=== PATIENT | female | born 1950 | race American Indian/Alaskan Native ===

== ENCOUNTER 2019-06-10 10:17 | Emergency (ER) | payer MEDICARE ==
[2019-06-10] MEDS ORDERED: MORPHINE 4 MG/1 ML INJ IV ONE (11:05)
[2019-06-10] MEDS ORDERED: ONDANSETRON 4 MG/2 ML INJ IV ONE (11:05)
--- NOTE | 2019-06-10 11:48 | XRay Report ---
HISTORY:pubic symp pain COMPARISON: None. TECHNIQUE: AP views were obtained FINDINGS: Bones: No fracture or dislocation. Joint spaces: Maintained. Soft tissues: No significant abnormality. Additional findings: None. IMPRESSION: 1. No significant abnormality. Signer Name: Jet Zaidi MD Signed: 06/10/2019 11:43 AM Workstation Name: [id number]
[2019-06-10] MEDS ORDERED: HYDROmorphone 1 MG/1 ML INJ IV ONE (12:22)
--- NOTE | 2019-06-10 14:12 | Emergency Department Report ---
ED General Adult HPI - General Chief complaint: Fall Stated complaint: FALL INJURY/PELVIC PAIN Time Seen by Provider: 06/10/19 10:54 Source: patient Mode of arrival: Wheelchair Limitations: No Limitations - History of Present Illness Initial comments: Presents to the emergency department with a chief complaint of pelvic pain. Patient states that she was getting out of the shower and slipped on a book and did a complete splint. Patient denies any hip pain but complains of pelvis pain. Patient denies hitting her head or loss of consciousness. -: Sudden Location: pelvis Severity scale (0 -10): 6 Quality: stabbing Consistency: constant Improves with: rest Worsens with: movement Associated Symptoms: denies other symptoms Treatments Prior to Arrival: none - Related Data Previous Rx's Medication Instructions Recorded Last Taken Type HYDROcodone/APAP 5-325 [[place] 1 each PO Q6HR PRN #20 tablet 11/29/15 Unknown Rx 5/325] Ibuprofen [Motrin] 600 mg PO Q8H PRN #30 tablet 11/29/15 Unknown Rx Oxycodone HCl/Acetaminophen 1 each PO Q6HR PRN #20 tablet 06/10/19 Unknown Rx [Percocet 7.5/325 mg] Allergies Allergy/AdvReac Type Severity Reaction Status Date / Time beeswax Allergy Unknown Verified 11/29/15 11:38 iodine Allergy Rash Verified 11/29/15 11:37 bees Allergy Unknown Uncoded 11/29/15 11:38 ED Review of Systems ROS: Stated complaint: FALL INJURY/PELVIC PAIN Other details as noted in HPI Constitutional: denies: chills, fever Eyes: denies: eye pain, eye discharge, vision change ENT: denies: ear pain, throat pain Respiratory: denies: cough, shortness of breath, wheezing Cardiovascular: denies: chest pain, palpitations Endocrine: no symptoms reported Gastrointestinal: denies: abdominal pain, nausea, diarrhea Genitourinary: denies: urgency, dysuria, discharge Musculoskeletal: other (pelvis pain). denies: back pain, joint swelling, arthralgia Skin: denies: rash, lesions Neurological: denies: headache, weakness, paresthesias Psychiatric: denies: anxiety, depression Hematological/Lymphatic: denies: easy bleeding, easy bruising ED Past Medical Hx - Past Medical History Previous Medical History?: Yes Hx Hypertension: Yes Hx Arthritis: Yes Hx Psychiatric Treatment: Yes (Depression) Additional medical history: sinus - Surgical History Hx Appendectomy: Yes Hx Breast Surgery: Yes (left breast cyst removal) Additional Surgical History: Hysterectomy , Left rotator cuff repair, Constantino catar act - Social History Smoking Status: Never Smoker Substance Use Type: None - Medications Home Medications: Home Medications Medication Instructions Recorded Confirmed Last Taken Type HYDROcodone/APAP 5-325 [[place] 1 each PO Q6HR PRN #20 tablet 11/29/15 Unknown Rx 5/325] Ibuprofen [Motrin] 600 mg PO Q8H PRN #30 tablet 11/29/15 Unknown Rx Oxycodone HCl/Acetaminophen 1 each PO Q6HR PRN #20 tablet 06/10/19 Unknown Rx [Percocet 7.5/325 mg] ED Physical Exam - General Limitations: No Limitations General appearance: alert, in no apparent distress - Head Head exam: Present: atraumatic, normocephalic - Eye Eye exam: Present: normal appearance, PERRL, EOMI - ENT ENT exam: Present: mucous membranes moist - Neck Neck exam: Present: normal inspection - Respiratory Respiratory exam: Present: normal lung sounds bilaterally. Absent: respiratory distress - Cardiovascular Cardiovascular Exam: Present: regular rate, normal rhythm. Absent: systolic murmur, diastolic murmur, rubs, gallop - GI/Abdominal GI/Abdominal exam: Present: soft, tenderness (suprapubic ttp), normal bowel sounds. Absent: distended - Extremities Exam Extremities exam: Present: normal inspection - Back Exam Back exam: Present: normal inspection - Neurological Exam Neurological exam: Present: alert, oriented X3, CN II-XII intact. Absent: motor sensory deficit - Psychiatric Psychiatric exam: Present: normal affect, normal mood - Skin Skin exam: Present: warm, dry, intact, normal color. Absent: rash ED Course Vital Signs 06/10/19 06/10/19 06/10/19 10:24 11:27 12:36 Temperature 97.8 F Pulse Rate 69 62 Respiratory 20 12 12 Rate Blood Pressure 164/71 Blood Pressure 165/81 [Left] O2 Sat by Pulse 100 99 Oximetry ED Medical Decision Making - Radiology Data Radiology results: report reviewed - Medical Decision Making Patient not able to ambulate after reviewing negative xray thus CT ab/pelvis ordered Discussed the results of CT and xray with pt and her family Critical care attestation.: If time is entered above; I have spent that time in minutes in the direct care of this critically ill patient, excluding procedure time. ED Disposition Clinical Impression: Pelvic pain, Fall Disposition: - TO HOME OR SELFCARE Is pt being admited?: No Does the pt Need Aspirin: No Condition: Stable Instructions: Fall Prevention (ED) Additional Instructions: return if worse Prescriptions: Oxycodone HCl/Acetaminophen [Percocet 7.5/325 mg] 1 each PO Q6HR PRN #20 tablet PRN Reason: Pain Referrals: PRIMARY CARE,MD [Primary Care Provider] - 3-5 Days [facility] [Provider Group] - 3-5 Days [facility] [Provider Group] - 3-5 Days Forms: Work/School Release Form(ED) Time of Disposition: 14:52
--- NOTE | 2019-06-10 14:27 | Cat Scan Report ---
CT abdomen pelvis wo con INDICATION: suprapubic pain s/p fall. TECHNIQUE: All CT scans at this location are performed using the following dose modulation technique: Automated exposure control. Helical slices were obtained through the abdomen and pelvis. No contrast is adminis tered. COMPARISON: None available. FINDINGS: Abdomen: No acute abnormality is seen in the lung bases. The liver, spleen, pancreas, adrenal glands, and kidneys show no acute abnormality. There is no intra-abdominal organ injury. There is no free ai r or fluid. There are no abnormal fluid collections. The bowel is grossly unremarkable. Pelvis: There are multiple phleboliths. There is sigmoid diverticulosis. There is no CT evidence of d iverticulitis. The appendix is not seen. No acute abnormality is seen in the pelvis. On review of bone windows no acute osseous abnormalities are seen. IMPRESSION: 1. No intra-abdominal organ injury is identified. There is no free air or fluid. There are no abnorma l fluid collections. There is sigmoid diverticulosis. There is no CT evidence of diverticulitis. Signer Name: Devante Miles MD Signed: 06/10/2019 2:22 PM Workstation Name: [id number]
[2019-06-10 15:42] VITALS: BP 161/65
[2019-06-10] MEDS ORDERED: oxyCODONE /ACETAMINOPHEN 5-325MG TAB PO ONE (15:48)
== END 2019-06-10 15:59 | disposition home or self-care (01) ==
LOC: ED 10:17
DX: R10.2 Pelvic and perineal pain (principal); F32.9 Major depressive disorder, single episode, unspecified; I10 Essential (primary) hypertension; M19.90 Unspecified osteoarthritis, unspecified site; Z90.89 Acquired absence of other organs; Z79.899 Other long term (current) drug therapy; Z91.030 Bee allergy status; Z91.041 Radiographic dye allergy status; W19.XXXA Unspecified fall, initial encounter; Y93.89 Activity, other specified; Y92.89 Other specified places as the place of occurrence of the external cause; Y99.8 Other external cause status
CPT/HCPCS: 72170; 74176; 96374; 96375; 99284; J1170; J2270; J2405

== ENCOUNTER 2021-10-08 05:33 | Inpatient (IN) | payer MEDICARE ==
[2021-10-08] MEDS ORDERED: SODIUM CHLORIDE 0.9% 1000 ML 1,000 ML IV ONE (06:09)
--- NOTE | 2021-10-08 06:15 | Emergency Department Report ---
ED Neuro Deficit HPI - General Chief Complaint: Neuro Symptoms/Deficit Stated Complaint: LEFT SIDE NUMBNESS SLURRED SPEECH Time Seen by Provider: 10/08/21 06:09 Source: patient Mode of arrival: Ambulatory Limitations: No Limitations - History of Present Illness Initial Comments: Patient presents with her daughter secondary to weakness. She went to bed last night around 930 or 10. She states that she had some friends over and they had a few glasses of wine. She thinks that she went to bed about 10, but her friends left probably about 930. She woke up this morning and noticed that she was having a hard time controlling her left arm. She is right-hand dominant. Patient did not have a headache. She had no blurred vision or double vision. She reported numbness in the left arm. Leg was not involved. Her daughter brought her here after the patient called her. She woke up about 5 AM. There is no history of trauma. Patient states that she still having problems with her left arm. She does not have any chest pain or shortness of breath. There has been no recent illness. She is never had symptoms like this before. Again, time of onset is unknown. Last known normal was approximately 930 or 10 PM last night. - Related Data Home Medications: Previous Rx's Medication Instructions Recorded Last Taken Type HYDROcodone/APAP 5-325 [[place] 1 each PO Q6HR PRN #20 tablet 11/29/15 Unknown Rx 5/325] Ibuprofen [Motrin] 600 mg PO Q8H PRN #30 tablet 11/29/15 Unknown Rx Oxycodone HCl/Acetaminophen 1 each PO Q6HR PRN #20 tablet 06/10/19 Unknown Rx [Percocet 7.5/325 mg] Allergies/Adverse Reactions: Allergies Allergy/AdvReac Type Severity Reaction Status Date / Time beeswax Allergy Unknown Verified 11/29/15 11:38 iodine Allergy Rash Verified 11/29/15 11:37 bees Allergy Unknown Uncoded 11/29/15 11:38 ED Review of Systems ROS: Stated complaint: LEFT SIDE NUMBNESS SLURRED SPEECH Other details as noted in HPI Comment: All other systems reviewed and negative Constitutional: denies: fever Eyes: denies: vision change ENT: denies: throat pain Respiratory: denies: cough Cardiovascular: denies: chest pain Endocrine: denies: unexplained weight loss Gastrointestinal: denies: abdominal pain Genitourinary: denies: dysuria Musculoskeletal: denies: back pain Skin: denies: rash Neurological: as per HPI Hematological/Lymphatic: denies: easy bruising ED Past Medical Hx - Past Medical History Previous Medical History?: Yes Hx Hypertension: Yes Hx Arthritis: Yes Hx Psychiatric Treatment: Yes (Depression) Additional medical history: sinus - Surgical History Past Surgical History?: Yes Hx Appendectomy: Yes Hx Breast Surgery: Yes (left breast cyst removal) Additional Surgical History: Hysterectomy , Left rotator cuff repair, Constantino cataract - Family History Family history: hypertension - Social History Smoking Status: Never Smoker Substance Use Type: None - Medications Home Medications: Home Medications Medication Instructions Recorded Confirmed Last Taken Type HYDROcodone/APAP 5-325 [[place] 1 each PO Q6HR PRN #20 tablet 11/29/15 Unknown Rx 5/325] Ibuprofen [Motrin] 600 mg PO Q8H PRN #30 tablet 11/29/15 Unknown Rx Oxycodone HCl/Acetaminophen 1 each PO Q6HR PRN #20 tablet 06/10/19 Unknown Rx [Percocet 7.5/325 mg] ED Neuro Physical Exam - General Limitations: No Limitations, Other (Pulse ox noted and normal) General appearance: alert, in no apparent distress Suspected Stroke: Yes - Head Head exam: Present: atraumatic, normocephalic - Eye Eye exam: Present: normal appearance, PERRL, EOMI. Absent: scleral icterus - ENT ENT exam: Present: normal orophraynx, normal external ear exam - Neck Neck exam: Present: normal inspection. Absent: meningismus - Respiratory Respiratory exam: Present: normal lung sounds bilaterally. Absent: respiratory distress - Cardiovascular Cardiovascular Exam: Present: regular rate, normal rhythm - GI/Abdominal GI/Abdominal exam: Present: soft. Absent: tenderness - Extremities Exam Extremities exam: Present: normal capillary refill - Back Exam Back exam: Absent: CVA tenderness (R), CVA tenderness (L) - Neurological Exam Neurological exam: Present: alert, oriented X3, motor sensory deficit (Left arm numbness and weakness), reflexes normal - NIHSS Assessment Interval: Baseline 1a. Level of Consciousness: alert/keenly responsive 1b. LOC Questions: answers both correctly 1c. LOC Commands: performs tasks correctly 2. Best Gaze: normal 3. Visual: no visual loss 4. Facial Palsy: normal symmetrical movement 5b. Motor Arm Right: no drift 5a. Motor Arm Left: drift 6a. Motor Leg Left: no drift 6b. Motor Leg Right: no drift 7. Limb Ataxia: absent 8. Sensory: mild/moderate sensory loss 9. Best Language: mild/moderate aphasia 10. Dysarthria: normal 11. Extinction/Inattention: no abnormality Total Score: 3 Stroke Severity: Minor Stroke - Psychiatric Psychiatric exam: Present: normal affect, normal mood - Skin Skin exam: Present: warm, dry ED Course Vital Signs 10/08/21 05:47 Temperature 97.1 F L Pulse Rate 54 L Respiratory 18 Rate Blood Pressure 122/76 [Right] O2 Sat by Pulse 100 Oximetry - Reevaluation(s) Reevaluation #1: 10/08/21 06:11 Stroke alert was called and the patient was placed in the room. This was approximately 25 minutes after she had presented and was waiting to be evaluated by nursing staff. Neurologist is currently on the phone. Patient would not be a candidate for thrombolytics considering the fact that her last known normal was approximately 930 or 10:00 last night. 10/08/21 06:14 Old records noted. Reevaluation #2: 10/08/21 07:33 Case had been discussed with neurology. It was agreed that the patient was not a thrombolytic candidate. At this time, labs have been reviewed. CT has been reviewed. Admission is currently planned. Reevaluation #3: 10/08/21 07:48 Case was discussed with the hospitalist who will admit. - Lab Data Result diagrams: 10/08/21 06:12 10/08/21 06:12 Lab Results 10/08/21 10/08/21 10/08/21 Range/Units 06:12 06:12 06:12 WBC 7.2 (4.5-11.0) K/mm3 RBC 3.94 (3.65-5.03) M/mm3 Hgb 13.3 (10.1-14.3) gm/dl Hct 39.3 (30.3-42.9) % MCV 100 H (79-97) fl MCH 34 H (28-32) pg MCHC 34 (30-34) % RDW 14.3 (13.2-15.2) % Plt Count 240 (140-440) K/mm3 Lymph % (Auto) 42.3 H (13.4-35.0) % [place] % (Auto) 9.5 H (0.0-7.3) % Eos % (Auto) 4.4 H (0.0-4.3) % Baso % (Auto) 0.7 (0.0-1.8) % Lymph # (Auto) 3.1 (1.2-5.4) K/mm3 [place] # (Auto) 0.7 (0.0-0.8) K/mm3 Eos # (Auto) 0.3 (0.0-0.4) K/mm3 Baso # (Auto) 0.1 (0.0-0.1) K/mm3 Seg Neutrophils % 43.1 (40.0-70.0) % Seg Neutrophils # 3.1 (1.8-7.7) K/mm3 PT (12.2-14.9) Sec. INR (0.87-1.13) APTT (24.2-36.6) Sec. Thrombin Time (15.1-19.6) Sec. Sodium 146 H (137-145) mmol/L Potassium 4.1 (3.6-5.0) mmol/L Chloride 107.3 H (98-107) mmol/L Carbon Dioxide 20 L (22-30) mmol/L Anion Gap 23 mmol/L BUN 15 (7-17) mg/dL Creatinine 0.9 (0.6-1.2) mg/dL Estimated GFR > 60 ml/min BUN/Creatinine Ratio 17 % Glucose 121 H (65-100) mg/dL POC Glucose (70-105) mg/dL Calcium 9.8 (8.4-10.2) mg/dL Troponin T < 0.010 (0.00-0.029) ng/mL 10/08/21 10/08/21 Range/Units 06:14 06:33 WBC (4.5-11.0) K/mm3 RBC (3.65-5.03) M/mm3 Hgb (10.1-14.3) gm/dl Hct (30.3-42.9) % MCV (79-97) fl MCH (28-32) pg MCHC (30-34) % RDW (13.2-15.2) % Plt Count (140-440) K/mm3 Lymph % (Auto) (13.4-35.0) % [place] % (Auto) (0.0-7.3) % Eos % (Auto) (0.0-4.3) % Baso % (Auto) (0.0-1.8) % Lymph # (Auto) (1.2-5.4) K/mm3 [place] # (Auto) (0.0-0.8) K/mm3 Eos # (Auto) (0.0-0.4) K/mm3 Baso # (Auto) (0.0-0.1) K/mm3 Seg Neutrophils % (40.0-70.0) % Seg Neutrophils # (1.8-7.7) K/mm3 PT 12.7 (12.2-14.9) Sec. INR 0.86 L (0.87-1.13) APTT 26.6 (24.2-36.6) Sec. Thrombin Time 17.0 (15.1-19.6) Sec. Sodium (137-145) mmol/L Potassium (3.6-5.0) mmol/L Chloride (98-107) mmol/L Carbon Dioxide (22-30) mmol/L Anion Gap mmol/L BUN (7-17) mg/dL Creatinine (0.6-1.2) mg/dL Estimated GFR ml/min BUN/Creatinine Ratio % Glucose (65-100) mg/dL POC Glucose 106 H (70-105) mg/dL Calcium (8.4-10.2) mg/dL Troponin T (0.00-0.029) ng/mL Rhythm strip: Normal sinus rhythm without ectopy. Monitor observe 10 seconds. - EKG Data -: EKG Interpreted by Me When compared to previous EKG there are: previous EKG unavailable 10/08/21 07:48 [id number] shows sinus bradycardia at 57. QRS is prolonged at 153 and the patient has a right bundle branch block. QT corrected is normal at 432. There is no ST elevation to suggest STEMI. There is diffuse T wave flattening including leads III, 2, aVF, V3 through V6. Patient has T wave inversions in 1 and aVL. There is no old EKG for comparison. - Radiology Data Radiology results: report reviewed - Medical Decision Making Patient presented secondary to left hand weakness. She had some mild loss of speech fluidity. She had numbness involving the left hand. Time of onset is unknown. Patient did not meet criteria for thrombolytic therapy. She did not have evidence of large vessel occlusion based on her current presentation. She will be admitted for further evaluation including MRI and likely CT angiogram. Patient does not have any evidence of atrial fibrillation or dysrhythmia. She will be started on aspirin and Plavix as recommended by the neurologist. There is no evidence of tumor or bleed. Patient does not have any obvious electrolyte derangement that would account for her symptoms. Critical Care Time: No Critical care attestation.: If time is entered above; I have spent that time in minutes in the direct care of this critically ill patient, excluding procedure time. ED Disposition Clinical Impression: Left arm weakness Stroke Qualifiers: CVA mechanism: unspecified Qualified Code(s): I63.9 - Cerebral infarction, unspecified Disposition: 09 ADMITTED INPATIENT Is pt being admited?: Yes Condition: Stable Referrals: URSULA HUI MD [Primary Care Provider] - 3-5 Days
[2021-10-08 06:24] LABS: Basophils # (Auto) 0.1 K/mm3 (0.0-0.1); Basophils % (Auto) 0.7 % (0.0-1.8); Eosinophils # (Auto) 0.3 K/mm3 (0.0-0.4); Eosinophils % (Auto) 4.4 % (0.0-4.3); Hematocrit 39.3 % (30.3-42.9); Hemoglobin 13.3 gm/dl (10.1-14.3); Lymphocytes # (Auto) 3.1 K/mm3 (1.2-5.4); Lymphocytes % (Auto) 42.3 % (13.4-35.0); Mean Corpuscular HGB Conc 34 % (30-34); Mean Corpuscular Volume 100 fl (79-97); Monocytes # (Auto) 0.7 K/mm3 (0.0-0.8); Monocytes % (Auto) 9.5 % (0.0-7.3); Platelet Count 240 K/mm3 (140-440); Red Blood Count 3.94 M/mm3 (3.65-5.03); Red Cell Distribution Width 14.3 % (13.2-15.2)
--- NOTE | 2021-10-08 06:25 | Emergency Department Report ---
ED Neuro Deficit HPI - General Chief Complaint: Neuro Symptoms/Deficit Stated Complaint: LEFT SIDE NUMBNESS SLURRED SPEECH Time Seen by Provider: 10/08/21 06:09 Source: patient Mode of arrival: Ambulatory Limitations: No Limitations, Other (Pulse ox noted and normal) - History of Present Illness Initial Comments: [facility] Consult Note # Demographics Consult Type: Acute Stroke Level 2 (4.5-24 hrs) Patient Location: Emergency Room First Name: Arelis Last Name: Isacc Date of : 1950 Age: 71 Gender: Female Facility: [facility] Time of Initial Page ( Time): 10/08/2021, 06:03 Time of Return Call ( Time): 10/08/2021, 06:04 # HPI Chief Complaint: numbness weakness (focal) Handedness: Left History: Per ER staff, patient woke up 5am could not use her left hand. Last Known Normal: I have collected independent history specific to time last normal or last known well. We have collaborated with the provider and at this time, we have the most current timeline with the information that is available. 9:30 or 10pm Duration: constant hours Associated Symptoms: no double vision no headache no vision changes Quality: numbness weakness # Scores Time of exam and NIHSS (): 10/08/2021, 06:06 Level of Consciousness 1a: [0] = Alert; keenly responsive LOC Questions 1b: [0] = Answers both questions correctly LOC Commands 1c: [0] = Performs both tasks correctly Best Gaze 2: [0] = Normal Visual 3: [0] = No visual loss Facial Palsy 4: [0] = Normal symmetrical movements Motor Arm Left 5a: [0] = No drift Motor Arm Right 5b: [0] = No drift Motor Leg Left 6a: [0] = No drift Motor Leg Right 6b: [0] = No drift Limb Ataxia 7: [0] = Absent Sensory 8: [1] = [id number] sensory loss Best Language 9: [0] = No aphasia Dysarthria 10: [0] = Normal Extinction and Inattention 11: [0] = No abnormality NIHSS Total: 1 Modified Killen Scale (mRS) pre-stroke: [0] = No Symptoms Modified Cj Scale total: 0 VAN Screening: Negative # Exam SBP: 198 DBP: 143 Mental Status: awake alert and oriented x 3 follows commands Language: normal speech Motor: Orbiting around left forearm # ROS Constitutional: no fever Pulmonary: no shortness of breath Cardiovascular: no chest pain Musculoskeletal: back pain # PMH-FH-SH Past Medical History: anxiety hypertension Social History: non-smoker Medications: antihypertensive non-compliant with medications Allergies: Iodine # Data Glucose: 106 # Assessment Impression: Ischemic Stroke (Acute) # Plan Thrombolytic/Intervention: NOT IV Thrombolysis or IA Intervention candidate Thrombolytic Exclusion (< 3 hour window): time of onset unclear Thrombolytic Exclusion: > 4.5 hours Woke up with symptoms Target Blood Pressure: SBP < 220 Labs: CBC comprehensive metabolic panel ESR hemoglobin A1c lipid panel Imaging: (urgency: STAT): CT Head without contrast CT Angiogram Head and CT Angiogram Neck Imaging: (urgency: routine): MRI Brain without contrast Diagnostic Test: echo without bubble study Therapy/Evaluation: NPO until swallow evaluation PT/OT evaluation Medication: aspirin 81 mg PLUS clopidogrel (Plavix) 75 mg for 21 days, then monotherapy therafter start statin with goal of LDL < 70 DVT Prophylaxis: SCD chemical DVT prophylaxis Other: LDL < 70 permissive hypertension telemetry monitoring Disposition: admit - Related Data Home Medications: Previous Rx's Medication Instructions Recorded Last Taken Type HYDROcodone/APAP 5-325 [[place] 1 each PO Q6HR PRN #20 tablet 11/29/15 Unknown Rx 5/325] Ibuprofen [Motrin] 600 mg PO Q8H PRN #30 tablet 11/29/15 Unknown Rx Oxycodone HCl/Acetaminophen 1 each PO Q6HR PRN #20 tablet 06/10/19 Unknown Rx [Percocet 7.5/325 mg] Allergies/Adverse Reactions: Allergies Allergy/AdvReac Type Severity Reaction Status Date / Time beeswax Allergy Unknown Verified 11/29/15 11:38 iodine Allergy Rash Verified 11/29/15 11:37 bees Allergy Unknown Uncoded 11/29/15 11:38 ED Review of Systems ROS: Stated complaint: LEFT SIDE NUMBNESS SLURRED SPEECH Other details as noted in HPI Constitutional: denies: fever Eyes: denies: vision change ENT: denies: throat pain Respiratory: denies: cough Cardiovascular: denies: chest pain Endocrine: denies: unexplained weight loss Gastrointestinal: denies: abdominal pain Genitourinary: denies: dysuria Musculoskeletal: denies: back pain Skin: denies: rash Neurological: as per HPI Hematological/Lymphatic: denies: easy bruising ED Past Medical Hx - Past Medical History Previous Medical History?: Yes Hx Hypertension: Yes Hx Arthritis: Yes Hx Psychiatric Treatment: Yes (Depression) Additional medical history: sinus - Surgical History Past Surgical History?: Yes Hx Appendectomy: Yes Hx Breast Surgery: Yes (left breast cyst removal) Additional Surgical History: Hysterectomy , Left rotator cuff repair, Constantino cataract - Social History Smoking Status: Never Smoker Substance Use Type: None - Medications Home Medications: Home Medications Medication Instructions Recorded Confirmed Last Taken Type HYDROcodone/APAP 5-325 [[place] 1 each PO Q6HR PRN #20 tablet 11/29/15 Unknown Rx 5/325] Ibuprofen [Motrin] 600 mg PO Q8H PRN #30 tablet 11/29/15 Unknown Rx Oxycodone HCl/Acetaminophen 1 each PO Q6HR PRN #20 tablet 06/10/19 Unknown Rx [Percocet 7.5/325 mg] ED Neuro Physical Exam - General Limitations: No Limitations, Other (Pulse ox noted and normal) General appearance: alert, in no apparent distress Suspected Stroke: Yes - NIHSS Assessment Interval: Baseline (See copied NIHSS in BSL note.) 1a. Level of Consciousness: alert/keenly responsive 1b. LOC Questions: answers both correctly 1c. LOC Commands: performs tasks correctly 2. Best Gaze: normal 3. Visual: no visual loss 4. Facial Palsy: normal symmetrical movement 5b. Motor Arm Right: no drift 5a. Motor Arm Left: no drift 6a. Motor Leg Left: no drift 6b. Motor Leg Right: no drift 7. Limb Ataxia: absent 8. Sensory: mild/moderate sensory loss 9. Best Language: no aphasia 10. Dysarthria: normal 11. Extinction/Inattention: no abnormality Total Score: 1 Stroke Severity: Minor Stroke ED Course Vital Signs 10/08/21 05:47 Temperature 97.1 F L Pulse Rate 54 L Respiratory 18 Rate Blood Pressure 122/76 [Right] O2 Sat by Pulse 100 Oximetry - Lab Data Lab Results 10/08/21 Range/Units 06:14 POC Glucose 106 H (70-105) mg/dL Critical care attestation.: If time is entered above; I have spent that time in minutes in the direct care of this critically ill patient, excluding procedure time. ED Disposition Clinical Impression: Stroke Disposition: 09 ADMITTED INPATIENT Is pt being admited?: Yes Condition: Stable
[2021-10-08 06:42] LABS: BUN/Creatinine Ratio 17; Blood Urea Nitrogen 15 mg/dL (7-17); Calcium 9.8 mg/dL (8.4-10.2); Hemolysis Index 48
[2021-10-08 06:59] LABS: INR 0.86 (0.87-1.13)
[2021-10-08 07:00] LABS: Partial Thromboplastin Time 26.6 Sec. (24.2-36.6)
--- NOTE | 2021-10-08 07:32 | Cat Scan Report ---
CT HEAD WITHOUT CONTRAST INDICATION / CLINICAL INFORMATION: Stroke symptoms. TECHNIQUE: All CT scans at this location are performed using CT dose reduction for ALARA by means of automated exposure control. COMPARISON: None available. FINDINGS: BRAIN PARENCHYMA: No acute intracranial hemorrhage. No evidence of recent infarct. No mass effect or midline shift. White matter chronic small vessel ischemic changes. VENTRICULAR SYSTEM/EXTRA-AXIAL SPACES: Age-related cerebral atrophy. No extra-axial fluid collection. ORBITS: Normal as visualized. SKELETAL SYSTEM/SOFT TISSUES: Normal bones and soft tissues. PARANASAL SINUSES/MASTOID AIR CELLS: No significant abnormality. ADDITIONAL FINDINGS: None. IMPRESSION: 1. No acute intracranial abnormality. CODE STROKE Time of Communication (SPEECH AND HEARING CLINIC DIRECTOR/CDT): 10/08/2019 09/19/2019 6:00 AM Licensed Practitioner Receiving Report: Betzy Signer Name: Scott Houser MD Signed: 10/08/2021 7:27 AM Workstation Name: [id number]
--- NOTE | 2021-10-08 08:59 | History and Physical Report ---
History of Present Illness History of present illness: 71-year-old -[place] female with PMH of morbid obesity, HTN, arthritis knee and left carpal tunnel syndrome is fully functional during independently. Her daughter lives close by. She quit taking her BP meds about a month ago. She had her injection for left carpal tunnel syndrome about 20 years ago. Of late, she has been experience some numbness and tingling in left hand especially the nights. She is a company with her friends last evening and after having dinner and wine, she went to bed last night around 10. She woke up this morning at 5 and noticed that she had left hand drop and having a hard time controlling her left arm associated with tingling, burning and numbness in hand. She is right-hand dominant. Patient did not have a headache. She had no blurred vision or double vision. Leg was not involved. The time of onset of her system is unknown since she was sleeping. Her daughter brought her here after the patient called her. There is no history of trauma. Patient states that she still having problems with her left arm. Last known normal/baseline was a about 10 PM last night. In ED, initial BP 190/143 and then 15 minutes later 138/88 without medical intervention. Thereafter SBP ranged from 140-150. Not placed on any antihypertensives. Stroke work-up was initiated in ED, CT head did not show any any acute process. CTA of head and neck ordered but could not be performed due to patient's history of allergy to iodine. Instead, MRA of the brain and neck ordered in addition to MRI of the brain. EKG showed sinus rhythm, rate 57, righ t bundle branch block. CBC, CMP, coags unremarkable with the fasting blood glucose 114. LDL 76. Patient was given aspirin. Neurological exam in ED was significant for isolated left wrist/hand drop. No facial droop, speech disturbance or swallowing problem. Patient denies any acute gait disturbance. As described above, of late, she has been experience some numbness and tingling in left hand especially the nights. Review of systems: 13 system reviewed only the pertinent findings are mentioned here. She denies history of TIA, CVA, heart disease, diabetes or lung disease. She does not have any chest pain or shortness of breath. There has been no recent illness. She is never had symptoms like this before. Patient quit taking her BP meds about a month ago she does not like to take medications. However she does monitor BP and was never higher than 140 systolic. Patient denies palpitations dizziness or syncopal episodes. No acute JR urinary symptoms. PMH: morbid obesity, HTN, arthritis knee and left carpal tunnel syndrome, received steroid injections about 20 years ago. Social history: Lives independently by himself. No history of tobacco use. Drinks alcohol typically during the weekends. Family history: Noncontributory. Current prescription meds: Quit taking to BP parents report a month ago. Allergies: Bumex and iodine. Medications and Allergies Allergies Allergy/AdvReac Type Severity Reaction Status Date / Time beeswax Allergy Unknown Verified 11/29/15 11:38 iodine Allergy Rash Verified 11/29/15 11:37 bees Allergy Unknown Uncoded 11/29/15 11:38 Home Medications Medication Instructions Recorded Confirmed Last Taken Type HYDROcodone/APAP 5-325 [[place] 1 each PO Q6HR PRN #20 tablet 11/29/15 Unknown Rx 5/325] Ibuprofen [Motrin] 600 mg PO Q8H PRN #30 tablet 11/29/15 Unknown Rx Oxycodone HCl/Acetaminophen 1 each PO Q6HR PRN #20 tablet 06/10/19 Unknown Rx [Percocet 7.5/325 mg] Amoxicillin/K Clav Tab [Augmentin 1 tab PO Q12HR 10/09/21 10/09/21 10/08/21 05:00 History 875 mg] NIFEdipine [Nifedipine ER] 90 mg PO DAILY 10/09/21 10/09/21 10/08/21 05:00 History hydrOXYzine PAMOATE [Vistaril] 25 mg PO Q6HR PRN 10/09/21 10/09/21 Unknown History hydroCHLOROthiazide [HCTZ] 25 mg PO QDAY 10/09/21 10/09/21 10/08/21 05:00 History Exam - Constitutional Vitals: Temp Pulse Resp BP Pulse Ox 97.1 F L 59 L 19 154/74 100 10/08/21 05:47 10/08/21 08:41 10/08/21 08:41 10/08/21 08:41 10/08/21 08:41 General appearance: Present: no acute distress, obese (Morbidly obese, BMI 36), other (Alert and oriented) - EENT Eyes: Present: PERRL, EOM intact ENT: hearing intact, clear oral mucosa, other (Oropharynx crowded.) - Neck Neck: Present: supple - Respiratory Respiratory effort: normal Respiratory: bilateral: CTA - Cardiovascular Rhythm: regular - Extremities Extremities: No edema - Abdominal General gastrointestinal: Present: soft, non-tender, normal bowel sounds - Integumentary Integumentary: Absent: rash - Psychiatric Psychiatric: appropriate mood/affect - Neurologic Neurologic: other (Alert and oriented. Normal speech. Normal comprehension. 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 The remainder of motor exam unremarkable. Gait not tested.) HEART Score - HEART Score Troponin: Troponin T < 0.010 ng/mL (0.00-0.029) 10/08/21 06:12 Results - Labs CBC & Chem 7: 10/08/21 06:12 10/08/21 06:12 Labs: Laboratory Last Values WBC 7.2 K/mm3 (4.5-11.0) 10/08/21 06:12 RBC 3.94 M/mm3 (3.65-5.03) 10/08/21 06:12 Hgb 13.3 gm/dl (10.1-14.3) 10/08/21 06:12 Hct 39.3 % (30.3-42.9) 10/08/21 06:12 MCV 100 fl (79-97) H 10/08/21 06:12 MCH 34 pg (28-32) H 10/08/21 06:12 MCHC 34 % (30-34) 10/08/21 06:12 RDW 14.3 % (13.2-15.2) 10/08/21 06:12 Plt Count 240 K/mm3 (140-440) 10/08/21 06:12 Lymph % (Auto) 42.3 % (13.4-35.0) H 10/08/21 06:12 [place] % (Auto) 9.5 % (0.0-7.3) H 10/08/21 06:12 Eos % (Auto) 4.4 % (0.0-4.3) H 10/08/21 06:12 Baso % (Auto) 0.7 % (0.0-1.8) 10/08/21 06:12 Lymph # (Auto) 3.1 K/mm3 (1.2-5.4) 10/08/21 06:12 [place] # (Auto) 0.7 K/mm3 (0.0-0.8) 10/08/21 06:12 Eos # (Auto) 0.3 K/mm3 (0.0-0.4) 10/08/21 06:12 Baso # (Auto) 0.1 K/mm3 (0.0-0.1) 10/08/21 06:12 Seg Neutrophils % 43.1 % (40.0-70.0) 10/08/21 06:12 Seg Neutrophils # 3.1 K/mm3 (1.8-7.7) 10/08/21 06:12 PT 12.7 Sec. (12.2-14.9) 10/08/21 06:33 INR 0.86 (0.87-1.13) L 10/08/21 06:33 APTT 26.6 Sec. (24.2-36.6) 10/08/21 06:33 Thrombin Time 17.0 Sec. (15.1-19.6) 10/08/21 06:33 Sodium 146 mmol/L (137-145) H 10/08/21 06:12 Potassium 4.1 mmol/L (3.6-5.0) 10/08/21 06:12 Chloride 107.3 mmol/L (98-107) H 10/08/21 06:12 Carbon Dioxide 20 mmol/L (22-30) L 10/08/21 06:12 Anion Gap 23 mmol/L 10/08/21 06:12 BUN 15 mg/dL (7-17) 10/08/21 06:12 Creatinine 0.9 mg/dL (0.6-1.2) 10/08/21 06:12 Estimated GFR > 60 ml/min 10/08/21 06:12 BUN/Creatinine Ratio 17 % 10/08/21 06:12 Glucose 121 mg/dL (65-100) H 10/08/21 06:12 POC Glucose 114 mg/dL (70-105) H 10/08/21 07:55 Calcium 9.8 mg/dL (8.4-10.2) 10/08/21 06:12 Troponin T < 0.010 ng/mL (0.00-0.029) 10/08/21 06:12 Assessment and Plan Assessment and plan: Assessment and plan: Left wrist drop Onset is unknown but woke up with left hand/wrist drop in the setting of chronic tingling and numbness in left hand with a history of carpal tunnel syndrome receiving steroid injections about 20 years ago. 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 Differential diagnosis is acute on chronic carpal tunnel syndrome, acute radial nerve paralysis and acute stroke. CT head did not show an acute process. MRI ordered. Since patient has allergy to iodine MRI of the brain and head ordered. ED physician consulted teleneurologist. In-house neurology consulted for evaluation. Neurochecks. Telemetry. PT/OT/ST evaluation ordered as per stroke protocol. History of hypertension: Quit taking about a month ago. Current systolic blood pressure ranges from 140-150. Alcohol consumption: Unclear if she drinks heavily. Patient says that she drinks typically during the weekends. Morbid obesity Arthritis knee joints: However patient is able to ambulate without a walking aid. Discussed with the patient, her son/daughter, nursing staff and neurologist
[2021-10-08] MEDS ORDERED: ONDANSETRON 4 MG/2 ML INJ IV PRN (09:02)
[2021-10-08] MEDS ORDERED: MAGNESIUM HYDROXIDE (MOM) ORAL LIQD UDC PO PRN (09:02)
[2021-10-08] MEDS ORDERED: ACETAMINOPHEN 325 MG TAB PO PRN ×2 (09:02→22:44)
--- NOTE | 2021-10-08 09:43 | Consultation ---
History of Present Illness Consult date: 10/08/21 Reason for Consult: left side weakness and slurred speech History of present illness: Patient is 71 ys old femal presents with her daughter secondary to weakness left arm noted 5 am today on awaking She went to bed last night around 930 or 10. She states that she had some friends over and they had a few glasses of wine. She thinks that she went to bed about 10, but her friends left probably about 930. She woke up this morning to find her self on the couch and noticed that she was having a hard time controlling her left arm. She is right-hand dominant. Patient did not have a headache. She had no blurred vision or double vision. She reported numbness in the left arm. Leg was not involved. Her daughter brought her here after the patient called her. She woke up about 5 AM. There is no history of trauma. Patient states that she still having problems with her left arm. She does not have any chest pain or shortness of breath. There has been no recent illness. She is never had symptoms like this before. Again, time of onset is unknown. Last known normal was approximately 930 or 10 PM last night. pt. is a chronic drinker average 2-3 mixed drink daily Medications and Allergies Allergies Allergy/AdvReac Type Severity Reaction Status Date / Time beeswax Allergy Unknown Verified 11/29/15 11:38 iodine Allergy Rash Verified 11/29/15 11:37 bees Allergy Unknown Uncoded 11/29/15 11:38 Home Medications Medication Instructions Recorded Confirmed Last Taken Type HYDROcodone/APAP 5-325 [[place] 1 each PO Q6HR PRN #20 tablet 11/29/15 Unknown Rx 5/325] Ibuprofen [Motrin] 600 mg PO Q8H PRN #30 tablet 11/29/15 Unknown Rx Oxycodone HCl/Acetaminophen 1 each PO Q6HR PRN #20 tablet 06/10/19 Unknown Rx [Percocet 7.5/325 mg] Exam Medications and Allergies Allergies Allergy/AdvReac Type Severity Reaction Status Date / Time beeswax Allergy Unknown Verified 11/29/15 11:38 iodine Allergy Rash Verified 11/29/15 11:37 bees Allergy Unknown Uncoded 11/29/15 11:38 Home Medications Medication Instructions Recorded Confirmed Last Taken Type HYDROcodone/APAP 5-325 [[place] 1 each PO Q6HR PRN #20 tablet 11/29/15 Unknown Rx 5/325] Ibuprofen [Motrin] 600 mg PO Q8H PRN #30 tablet 11/29/15 Unknown Rx Oxycodone HCl/Acetaminophen 1 each PO Q6HR PRN #20 tablet 06/10/19 Unknown Rx [Percocet 7.5/325 mg] Active Meds: Active Medications Acetaminophen (Acetaminophen 325 Mg Tab) 650 mg PO Q4H PRN PRN Reason: Pain, Mild (1-3) Bisacodyl (Bisacodyl 10 Mg Rect Supp) 10 mg [place] QDAY PRN PRN Reason: Constipation Magnesium Hydroxide (Magnesium Hydroxide (Mom) Oral Liqd Udc) 30 ml PO Q4H PRN PRN Reason: Constipation Ondansetron HCl (Ondansetron 4 Mg/2 Ml Inj) 4 mg IV Q8H PRN PRN Reason: Nausea And Vomiting Sodium Chloride (Sodium Chloride 0.9% 10 Ml Flush Syringe) 10 ml INJ PRN PRN PRN Reason: LINE FLUSH Physical Examination - Vital Signs Vital Signs: Vital Signs Temp Pulse Resp BP Pulse Ox 97.1 F L 54 L 18 122/76 100 10/08/21 05:47 10/08/21 05:47 10/08/21 05:47 10/08/21 05:47 10/08/21 05:47 - Constitutional General appearance: uncomfortable - EENT EENT: Present: PERRL, mucous membranes moist - Respiratory Respiratory: Present: chest non-tender, lungs clear, rhonchi - Cardiovascular Cardiovascular: Present: regular rate, normal S1, normal S2 Extremities: Present: no peripheral edema bilatateraly, no clubbing, cyanosis - Gastrointestinal Gastrointestinal: Present: normoactive bowel sounds - Integumentary Integumentary: Present: normal - Neurologic Cranial nerve examination: PERRL, EOMI, intact Speech examination: intact Sensorimotor examination: intact Detailed motor examination: other (weakness in left hand dorsi flexion,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 Level of Consciousness: alert/keenly responsive - LOC Questions 1b. LOC Questions: answers both correctly - LOC Command 1c. LOC Commands: performs tasks correctly - Best Gaze 2. Best Gaze: normal - Visual 3. Visual: no visual loss - Facial Palsy 4. Facial Palsy: normal symmetrical movement - Motor Arm 5a. Motor Arm Left: no drift 5b. Motor Arm Right: no drift - Motor Leg 6a. Motor Leg Left: no drift 6b. Motor Leg Right: no drift (weakness in left hand dorsi flexion) - Limb Ataxia 7. Limb Ataxia: absent - Sensory 8. Sensory: normal - Best Language 9. Best Language: no aphasia - Dysarthria 10. Dysarthria: normal - Extinction and Inattention 11. Extinction/Inattention: no abnormality - Scoring Total Score: 0 Stroke Severity: No Stroke Symptoms Results - Laboratory Findings CBC and BMP: 10/08/21 06:12 10/08/21 06:12 Abnormal Lab Findings: Abnormal Labs 10/08/21 10/08/21 10/08/21 06:12 06:12 06:14 MCV 100 H MCH 34 H Lymph % (Auto) 42.3 H [place] % (Auto) 9.5 H Eos % (Auto) 4.4 H INR Sodium 146 H Chloride 107.3 H Carbon Dioxide 20 L Glucose 121 H POC Glucose 106 H 10/08/21 10/08/21 06:33 07:55 MCV MCH Lymph % (Auto) [place] % (Auto) Eos % (Auto) INR 0.86 L Sodium Chloride Carbon Dioxide Glucose POC Glucose 114 H Assessment and Plan Assessment and Plan Patient presents with her daughter secondary to weakness. She went to bed last night around 930 or 10. She states that she had some friends over and they had a few glasses of wine. She thinks that she went to bed about 10, but her friends left probably about 930. She woke up this morning and noticed that she was having a hard time controlling her left arm. She is right-hand dominant. Patient did not have a headache. She had no blurred vision or double vision. She reported numbness in the left arm. Leg was not involved. Her daughter brought her here after the patient called her. She woke up about 5 AM. There is no history of trauma. Patient states that she still having problems with her left arm. She does not have any chest pain or shortness of breath. There has been no recent illness. She is never had symptoms like this before. Again, time of onset is unknown. Last known normal was approximately 930 or 10 PM last night. # new onst left side weakness -noted this am on awaking -NIH#0 -left wrist drop -CT brain is unremarkable -MRI brain is unremarkable -MRA brain is pending -UDS is not done # excessive alcohol intake on daily basis -slept on the couch -r/o left radial nerves entrapment below brachioradialis -MRI brain is unremarlable -alcohol withdrwal 11 -thiamin -PT therapy - stop drinking # Hx of HTN -control BP<150/80 will follow as needed findings is D/W pt.
--- NOTE | 2021-10-08 10:18 | Electrocardiograph Report ---
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
--- NOTE | 2021-10-08 12:05 | Magnetic Resonance Report ---
MRA HEAD 10/08/2021 INDICATION / CLINICAL INFORMATION: Acute stroke, LT SIDED WEAKNESS. TECHNIQUE: Routine MRA of the head is performed. 3-D/MIP reformats postprocessed. COMPARISON: None available. FINDINGS: MRA HEAD: Intracranial internal carotid arteries: No significant abnormality. Anterior cerebral arteries: No significant abnormality. Middle cerebral arteries: No significant abnormality. Intracranial vertebral arteries: No significant abnormality. Basilar artery: No significant abnormality. Posterior cerebral arteries: No significant abnormality. IMPRESSION: No significant abnormality. Signer Name: Sylvain Moore MD Signed: 10/08/2021 12:00 PM Workstation Name: [id number]
--- NOTE | 2021-10-08 12:15 | Magnetic Resonance Report ---
MR brain wo/w con INDICATION / CLINICAL INFORMATION: 71 years Female; Acute left-sided weakness and slurred speech. TECHNIQUE: Multiplanar, multisequence MR images of the brain were obtained. COMPARISON: None available. FINDINGS: BRAIN / INTRACRANIAL CONTENTS: The motion degrades the image quality despite repeat imaging. However, appear to be mild cerebral white matter changes most consistent with mild age appropriate microvascu lar angiopathy. The diffusion imaging reveals no evidence of acute infarction. The ventricular system is within normal limits in size and configuration. No extra-axial fluid collections or significant m ass effect is identified. The motion particularly degrades the postcontrast sequences, the last be ob tained. However, no definitive intracranial enhancing lesions are appreciated. CRANIOCERVICAL JUNCTION: No significant abnormality. VASCULAR FLOW-VOIDS: No significant abnormality. ORBITS: No significant abnormality of visualized orbits. SINUSES / MASTOIDS: No significant abnormality in the visualized paranasal sinuses or mastoid air jacklyn ls. ADDITIONAL FINDINGS: None. IMPRESSION: 1. The study is limited by motion. However, the MRI the brain is essentially unremarkable for age wit hout evidence of recent infarction. Signer Name: Kwaku Wright MD Signed: 10/08/2021 12:11 PM Workstation Name: [id number]
[2021-10-08] MEDS: ASPIRIN 81 MG TAB CHEW PO SCH (13:01)
[2021-10-08] MEDS ORDERED: HYDROmorphone 1 MG/1 ML INJ IV PRN (22:44)
[2021-10-08] MEDS ORDERED: MORPHINE 2 MG/1 ML INJ IV PRN (22:44)
[2021-10-09 05:43] LABS: Chol/HDL Ratio 2.05 %
[2021-10-09] MEDS: ASPIRIN 81 MG TAB CHEW PO SCH ×2 (08:26→11:04)
--- NOTE | 2021-10-09 16:06 | Discharge Summary ---
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 Therapy Evaluate and Treat [CONS] Routine Comment: Reason For Exam: Neuro deficits Physical Therapy Evaluation and Treat [CONS] Routine Comment: Reason For Exam: Neuro deficits 10/08/21 09:20 Consult to Physician [CONS] Routine Comment: Consulting Provider: RICHY AYALA Physician Instructions: Reason For Exam: Acute left-sided weakness and slurred speech 10/09/21 08:00 Occupational Therapy Evaluate and Treat [CONS] Urgent Comment: Reason For Exam: Acute left wrist drop Physical Therapy Evaluation and Treat [CONS] Urgent Comment: Reason For Exam: Acute left wrist drop 10/09/21 15:59 Consult to Case Management [CONS] Routine Services Needed at Discharge: Occupational Therapy Additional Physician Instructions: Patient needs arrangements for outpatient occupational therapy after discharge Primary care physician: URSULA HUI Hospitalization Condition: Stable Hospital course: Discharge instructions given to patient: Wear a wrist brace as advised Continue occupational therapy after discharge See orthopedic doctor, Dr. Adair, call for appointment Resume your blood pressure medicine Have a sleep study arranged through your family doctor Disposition: 01 HOME / SELF CARE / HOMELESS Final Discharge Diagnosis (Prints w/discharge instructions): Left wrist drop, acute. History of left carpal tunnel syndrome. Morbid obesity. Hypertension, off medications. DJD knee joint Time spent for discharge: 35 minutes Exam - Constitutional Vitals: Temp Pulse Resp BP Pulse Ox 98.2 F 65 18 141/56 99 10/09/21 12:04 10/09/21 12:04 10/09/21 12:04 10/09/21 12:04 10/09/21 12:04 General appearance: Present: no acute distress, obese (Morbidly obese) - EENT Eyes: Present: PERRL, EOM intact ENT: other (Oropharynx crowded) - Neck Neck: Present: supple - Respiratory Respiratory effort: normal Respiratory: bilateral: CTA - Cardiovascular Rhythm: regular - Extremities Extremities: No edema - Abdominal General gastrointestinal: Present: soft, non-tender - Integumentary Integumentary: Absent: rash - Musculoskeletal Musculoskeletal: strength equal bilaterally - Psychiatric Psychiatric: appropriate mood/affect - Neurologic Neurologic: moves all extremities, other (Alert and oriented, normal cognition, normal speech, left wrist drop with security checker weakness presentimproving) Plan Activity: advance as tolerated Diet: low fat, low cholesterol, low salt Additional Instructions: Wear a wrist brace as advised. Continue occupational therapy after discharge. See orthopedic doctor, Dr. Adair, call for appointment. Resume your blood pressure medicine. Have a sleep study arranged through your family doctor Follow up with: URSULA HUI MD [Primary Care Provider] - 3-5 Days CIARA ADAIR MD [Staff Physician] - 7 Days
[2021-10-09 16:48] VITALS: BP 149/70
--- NOTE | 2021-10-11 07:58 | Magnetic Resonance Report ---
MR MRA/MRV neck wo con INDICATION / CLINICAL INFORMATION: Acute stroke. TECHNIQUE: MRA neck is performed. 3-D/MIP reformats postprocessed. Percentage stenosis is determined by direct q uantitative measurements of distal internal carotid artery diameter compared with normal reference se gments or by criteria similar to NASCET where applicable. COMPARISON: Brain MRI on 10/08/2021 FINDINGS: MRA NECK: Cervical vertebral arteries: No occlusion or significant stenosis. Common carotid arteries: No occlusion or significant stenosis. Cervical internal carotid arteries: No occlusion or significant stenosis. Additional findings: None. IMPRESSION: 1. No occlusion or significant stenosis of the major neck vasculature. Signer Name: Khari Mcdonough MD Signed: 10/11/2021 7:54 AM Workstation Name: [id number]
== END 2021-10-09 17:57 | disposition home or self-care (01) | DRG 74 ==
LOC: ED 05:33 → 4A 22:44
PROVIDERS: ADMIT Internal Medicine; ATTEND Internal Medicine
DX: M21.332 Wrist drop, left wrist (principal); R53.1 Weakness; I10 Essential (primary) hypertension; M19.90 Unspecified osteoarthritis, unspecified site; E66.01 Morbid (severe) obesity due to excess calories; G56.02 Carpal tunnel syndrome, left upper limb; Z90.49 Acquired absence of other specified parts of digestive tract; Z82.49 Family history of ischemic heart disease and other diseases of the circulatory system; Z91.041 Radiographic dye allergy status
CPT/HCPCS: 36415; 70450; 70544; 70547; 70553; 80048; 80061; 82962; 84484; 85025; 85610; 85670; 85730; 93005; 93010; G0378; Q0162; A9575; J7030